=== PATIENT | female | born 1960 | race Caucasian/White ===

== ENCOUNTER 2019-04-22 12:42 | Emergency (ER) | payer BC ==
--- NOTE | 2019-04-22 13:14 | ED ---
HPI Chest Pain - HPI Summary HPI Summary: Pt is a 58 y/o F presenting to the ED with a chief complaint of chest pain initially onset about 1 hour ago when she was lying on the couch. It initially came on in the lower sternal region, then radiated up to her mid-sternum and through her neck/jaw. It did not radiate to her arms, but notes she feels it in her back when she coughs. She notes nausea and diarrhea recently, but states those were resolved this morning. She states she feels somewhat lightheaded/ dizzy, but is not able to specifically describe it. She denies pain or edema in her calves. Also denies hx of blood clots, GERD, or smoking. - History of Current Complaint Chief Complaint: EDChestWallPain Time Seen by Provider: 04/22/19 13:01 Hx Obtained From: Patient Onset/Duration: Started Hours Ago, Still Present Timing: Constant, Lasting Hours Initial Severity: Mild Current Severity: None Pain Intensity: 0 Pain Scale Used: 0-10 Numeric Chest Pain Location: Mid Sternal, Lower Sternal Chest Pain Radiates: Yes Chest Pain Radiates To:: Back, Jaw, Neck Aggravating Factor(s): Other: - coughing Alleviating Factor(s): Nothing Associated Signs and Symptoms: Positive: Chest Pain, Lightheadedness, Nausea. Negative: Calf Pain/Swelling - Allergy/Home Medications Allergies/Adverse Reactions: Allergies Allergy/AdvReac Type Severity Reaction Status Date / Time No Known Allergies Allergy Verified 04/22/19 12:58 PMH/Surg Hx/FS Hx/Imm Hx Previously Healthy: Yes Endocrine/Hematology History: Reports: Hx Diabetes Cardiovascular History: Denies: Hx Hypertension - Cancer History Hx Chemotherapy: No Hx Radiation Therapy: No Infectious Disease History: No Infectious Disease History: Denies: Traveled Outside the [place] in Last 30 Days - Family History Known Family History: Positive: Cardiac Disease - both parents - Social History Lives: With Family Alcohol Use: None Hx Substance Use: No Substance Use Type: Reports: None Hx Tobacco Use: No Smoking Status (MU): Never Smoked Tobacco Review of Systems Positive: Chest Pain Positive: Diarrhea, Nausea Negative: Myalgia, Edema Neurological: Other - dizzy/lightheaded feeling All Other Systems Reviewed And Are Negative: Yes Physical Exam - Summary Physical Exam Summary: Constitutional: Well-developed, Well-nourished, Alert. (-) Distressed Skin: Warm, Dry HENT: Normocephalic; Atraumatic Eyes: Conjunctiva normal Neck: Musculoskeletal ROM normal neck. (-) JVD, (-) Stridor, (-) Tracheal deviation Cardio: Rhythm regular, rate normal, Heart sounds normal; Intact distal pulses; The pedal pulses are 2+ and symmetric. Radial pulses are 2+ and symmetric. (-) Murmur Pulmonary/Chest wall: Effort normal. (-) Respiratory distress, (-) Wheezes, (-) Rales Abd: Soft, (-) tenderness, (-) Distension, (-) Guarding, (-) Rebound Musculoskeletal: (-) Edema Lymph: (-) Cervical adenopathy Neuro: Alert, Oriented x3 Psych: Mood and affect Normal Triage Information Reviewed: Yes Vital Signs On Initial Exam: Initial Vitals Temp Pulse Resp BP Pulse Ox 98.3 F 95 18 156/103 97 04/22/19 12:54 04/22/19 12:54 04/22/19 12:54 04/22/19 12:54 04/22/19 12:54 Vital Signs Reviewed: Yes Procedures - Sedation Patient Received Moderate/Deep Sedation with Procedure: No Diagnostics - Vital Signs Vital Signs Temp Pulse Resp BP Pulse Ox 04/22/19 12:54 98.3 F 95 18 156/103 97 - Laboratory Result Diagrams: 04/22/19 13:22 04/22/19 13:22 Lab Statement: Any lab studies that have been ordered have been reviewed, and results considered in the medical decision making process. - Radiology CXR Radiology Interpretation Completed By: Radiologist Summary of Radiographic Findings: No evidence for acute intrathoracic disease. ED physician has reviewed this report. - EKG 1244 Cardiac Rate: NL - 90bpm EKG Rhythm: Sinus Rhythm ST Segment: Normal Ectopy: None Summary of EKG Findings: EKG at 1244 shows NSR at 90bpm with no STEMI. Slight ST depression in the lateral leads. Dr. Marcano has reviewed and interpreted this EKG. Chest Pain Course/Dx - Course Course Of Treatment: Pt is a 58 y/o F presenting to the ED with a chief complaint of chest pain initially onset about 1 hour ago when she was lying on the couch in the lower-mid sternal region radiating up to her neck/jaw. She notes nausea and diarrhea recently. She states she feels somewhat lightheaded/ dizzy, but is not able to specifically describe it. She denies pain or edema in her calves. Pt's physical exam is nml. EKG at 1244 shows NSR at 90bpm with no STEMI. Slight ST depression in the lateral leads. Dr. Marcano has reviewed and interpreted this EKG. No evidence for acute intrathoracic disease. Pt's dx is chest pain. She will be d/c'ed, and she is stable and agreeable with this plan. - Diagnoses Provider Diagnoses: Chest pain Discharge ED - Sign-Out/Discharge Documenting (check all that apply): Patient Departure - Discharge Plan Condition: Stable Disposition: HOME Patient Education Materials: Chest Pain (ED) Referrals: Mayo Stokes MD [Primary Care Provider] - Additional Instructions: Please follow up with your primary care provider within the next 1-3 days. Return to the emergency department with any new or worsening symptoms. - Billing Disposition and Condition Condition: STABLE Disposition: Home - Attestation Statements Document Initiated by Donell: Yes Documenting Scribe: Mell Bae Provider For Whom Donell is Documenting (Include Credential): Sd Marcano DO. Scribe Attestation: Mell Lopez scribed for Sd Marcano DO. on 04/22/19 at 1729. Scribe Documentation Reviewed: Yes Provider Attestation: The documentation as recorded by the tolueMell accurately reflects the service I personally performed and the decisions made by Sd garg DO. Status of Scribe Document: Viewed
[2019-04-22 13:31] LABS: ABS Eosinophils 0.1 10^3/ul (0-0.6); ABS Monocytes 0.4 10^3/ul (0-0.8); ABS Neutrophils 3.3 10^3/ul (1.5-7.7); Eosinophil % 2.4 %; Hematocrit 43 % (35-47); Hemoglobin 14.5 g/dL (12.0-16.0); Lymphocyte % 20.9 %; Mean Corpuscular HGB Conc 34 g/dL (31-36); Mean Corpuscular Hemoglobin 29 pg (27-31); Mean Corpuscular Volume 86 fL (80-97); Mean Platelet Volume 8.4 fL (7.4-10.4); Platelet Count 175 10^3/uL (150-450); Red Blood Count 4.95 10^6 /uL (3.70-4.87); Red Cell Distribution Width 14 % (10-15); White Blood Count 4.9 10^3/uL (3.5-10.8)
[2019-04-22 13:47] LABS: Albumin 4.2 g/dL (3.2-5.2); Albumin/Globulin Ratio 1.3 (1-3); BUN/Creatinine Ratio 23.6 (8-20); Calcium 9.3 mg/dL (8.6-10.3); EGFR Non-African American 82.6 (>60); Globulin 3.2 g/dL (2-4); Potassium 3.9 mmol/L (3.5-5.0); Total Bilirubin 0.6 mg/dL (0.2-1.0); Total Protein 7.4 g/dL (6.4-8.9)
[2019-04-22 17:01] VITALS: BP 127/75
== END 2019-04-22 17:01 | disposition home or self-care (01) ==
LOC: ED 12:42
DX: R07.9 Chest pain, unspecified (principal); E11.9 Type 2 diabetes mellitus without complications
CPT/HCPCS: 36415; 71045; 80053; 84484; 85025; 93005; 99283